=== PATIENT | female | born 1960 | race Caucasian/White ===

== ENCOUNTER 2018-05-16 18:15 | Emergency (ER) | payer OTHER ==
[~2018-05-16] VITALS: Ht 157.5 cm; Wt 117.9 kg
[2018-05-16] MEDS ORDERED: TRIAMCINOLONE A80 G2 TOP (18:58)
[2018-05-16] MEDS ORDERED: KEFLEX500 M1 PO (18:58)
[2018-05-16 19:15] VITALS: BP 175/89
== END 2018-05-16 19:17 | disposition home or self-care (01) ==
LOC: M.ERS 18:15
DX: L03.115 Cellulitis of right lower limb (principal); Z88.5 Allergy status to narcotic agent; Z88.1 Allergy status to other antibiotic agents; Z88.0 Allergy status to penicillin; Z88.7 Allergy status to serum and vaccine; Z90.710 Acquired absence of both cervix and uterus